=== PATIENT | female | born 1970 | race Caucasian/White ===

== ENCOUNTER 2019-12-15 17:09 | Emergency (ER) | payer BC ==
--- OUTSIDE RECORDS SUMMARY | 2019-12-15 17:11 | XMS REPORT | Summary of Care ---
:1970 Author Organization [facility] Physicians at [facility] Address [address] [place] [phone]- Encounter HQ Yudelka(FIN) [id number] Date(s): 11/15/19 - 11/15/19 [facility] Physicians at [place] [id number] [place] [address]- [phone] Discharge Disposition: Home or Self Care Attending Physician: Ken Knight MD Vital Signs Most recent to oldest [Reference Range]: 1 Temperature Oral [96.4-99.1 DegF] 97.3 DegF (11/15/19 8:50 AM) Blood Pressure [90-140/60-90 mmHg] 122/85 mmHg (11/15/19 8:50 AM) Respiratory Rate [14-20 BRMIN] 18 BRMIN (11/15/19 8:50 AM) Peripheral Pulse Rate [60-100 bpm] 77 bpm (11/15/19 8:50 AM) Weight 105.511 kg (11/15/19 8:50 AM) Problem List Condition Effective Dates Status Health Status Informant Depressive disorder1 Active Hypertensive disorder2 Active Morbid obesity(Confirmed) Active Panic disorder3 Active 1Data migrated from [employer] on 08/20/14.2Data migrated from [employer] on 08/20/14.3Data migrated from [employer] on 08/20/14. 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 DANISH [> OR = 60 mL/min/1.73m2] 103 m L/min/1.73m2 *N* (11/15/19 9:40 AM) eGFR [> OR = 60 mL/min/1.73m2] 119 mL /min/1.73m2 *N* (11/15/19 9:40 AM) A/G Ratio [1.0-2.5 (CALC)] 1.7 (CALC) *N* (11/15/19 9:40 AM) Albumin Lvl [3.6-5.1 g/dL] 4.3 g/dL *N* (11/15/19 9:40 AM) Alk Phos [37-153 unit/L] 68 unit/L *N* (11/15/19 9:40 AM) ALT [6-29 unit/L] 25 unit/L *N* (11/15/19 9:40 AM) AST [10-35 unit/L] 20 unit/L *N* (11/15/19 9:40 AM) B/C Ratio [6-22] NOT APPLICABLE (11/15/19 9:40 AM) BUN [7-25 mg/dL] 7 mg/dL *N* (11/15/19 9:40 AM) Calcium Lvl [8.6-10.4 mg/dL] 9.3 mg/dL *N* (11/15/19 9:40 AM) CHD Risk [<5.0 (CALC)] 3.5 (CALC) *N* (11/15/19 9:40 AM) Chol [<200 mg/dL] 153 mg/dL 2 *N* (11/15/19 9:40 AM) Chloride Lvl [98-110 mMol/L] 103 mMol/L *N* (11/15/19 9:40 AM) CO2 [20-32 mMol/L] 28 mMol/L *N* (11/15/19 9:40 AM) Creatinine Lvl [0.50-1.05 mg/dL] 0.65 mg/dL 3 *N* (11/15/19 9:40 AM) Globulin [1.9-3.7 g/dL] 2.6 g/dL *N* (11/15/19 9:40 AM) Glucose Lvl [65-99 mg/dL] 82 mg/dL 4 *N* (11/15/19 9:40 AM) HDL [> OR = 50 mg/dL] 44 mg/dL *LOW* (11/15/19 9:40 AM) Hgb A1C [<5.7 %] 5.5 % 5 *N* (11/15/19 9:40 AM) Potassium Lvl [3.5-5.3 mMol/L] 4.3 mMol/L *N* (11/15/19 9:40 AM) LDL (Calculated) 88 mg/dL 6 *N* (11/15/19 9:40 AM) Sodium Lvl [135-146 mMol/L] 139 mMol/L *N* (11/15/19 9:40 AM) Total Protein [6.1-8.1 g/dL] 6.9 g/dL *N* (11/15/19 9:40 AM) Bili Total [0.2-1.2 mg/dL] 0.3 mg/dL *N* (11/15/19 9:40 AM) Trig [<150 mg/dL] 111 mg/dL *N* (11/15/19 9:40 AM) 1Result Comment: For patients with diabetes plus 1 major ASCVD risk factor, treating to a non-HDL-C goal of <100 mg/dL (LDL-C of <70 mg/dL) is considered a therapeutic option.2Result Comment: [facility] performed by: [facility] [address] [place] [address] Roberto Muniz3Result Comment: For patients >49 years of age, the reference limit for Creatinine is approximately 13% higher for people identified as -Taiwanese.4Result Comment: Fasting reference interval Lab test performed by: [facility] [address] [place] [address] Roberto Muniz5Result Comment: For the purpose of screening for the presence of diabetes: <5.7% Consistent with the absence of diabetes 5.7-6.4% Consistent with increased risk for diabetes (prediabetes) > or =6.5% Consistent with diabetes This assay result is consistent with a decreased risk of diabetes. Currently, no consensus exists regarding use of hemoglobin A1c for diagnosis of diabetes in children. According to [place] Diabetes Association (ADA) guidelines, hemoglobin A1c <7.0% represents optimal control in non- diabetic patients. Different metrics may apply to specific patient populations. Standards of Medical Care in Diabetes(ADA). FASTING:YES FASTING: YES Lab test performed by: [facility] [address] [place] [address] Roberto Muniz6Result Comment: Reference range: <100 Desirable range <100 mg/dL for primary prevention; <70 mg/dL for patients with CHD or diabetic patients with > or = 2 CHD risk factors. LDL-C is now calculated using the Leonides-Althea calculation, which is a validated novel method providing better accuracy than the Friedewald equation in the estimation of LDL-C. Leonides BENITEZ et al. MELISSA. 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 Recreational Guerrero g Route: Oral. Smoking Status Former smoker; Ready to dean ge: No; Concerns about tobacco use in household: No; Exposure to Tobacco Smoke None; Cigarette Smoking Last 365 Days No; Reg Smoking Cessation Counseling No entered on: 11/15/19 Assessment and Plan No data available for this section
--- OUTSIDE RECORDS SUMMARY | 2019-12-15 17:11 | XMS REPORT | Summary of Care ---
:1970 Author Organization [facility] Physicians at [facility] Address [id number] [place] [address]- Encounter HQ Angie_kira(FIN) [id number] Date(s): 12/07/19 - 12/08/19 [facility] Physicians at [place] [address] [place] [address]- [phone] Vital Signs No data available for this section Problem List Condition Effective Dates Status Health Status Informant Depressive disorder1 Active Hypertensive disorder2 Active Morbid obesity(Confirmed) Active Panic disorder3 Active 1Data migrated from [employer] on 08/20/14.2Data migrated from [employer] on 08/20/14.3Data migrated from [employer] on 08/20/14. 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 Start Date: 12/07/19 Stop Date: 12/19/19 Status: Ordered Results No data available for this section Immunizations No data available for this section [...]
--- OUTSIDE RECORDS SUMMARY | 2019-12-15 17:11 | XMS REPORT | Continuity of Care Document ---
:1970 Author Organization [facility] Care Team Providers Name Role Phone RIWI Unavailable Un available Problems Problem Status Onset Classification Date Comments Sourc e Date Reported M13.0 - Active 09/23/19 [facility] POLYARTHRITIS, 19 Elma nn UNSPECIFIED Depressive Active Problem 12/11/2019 Data migrated M edical disorder from [facility], (disorder) Centricity on [facility] 08/20/14. [place] Hypertensive Active Problem 12/11/2019 Data migrated Medical disorder, from [facility], systemic Centricity on OP[facility] arterial 08/20/14. Dave (disorder) Morbid obesity Active Problem 12/11/2019 M edical (disorder) Group Panic disorder Active Problem 12/11/2019 Data migrated Medical (disorder) from [facility], Centricity on OP[facility] 08/20/14. [place] Medications Medication Details Route Status Patient Ordering Order Source Instructions Provider Date predniSONE 20 mg See Active oral tablet Special 020 Medical Instructio Group ns, PO, Daily, Days 1-4 - 2 tabs daily Days 5-8 - 1 tab daily Days 9-12 - half tab daily, X 12 day, # 14 tab, 0 Refill(s), Pharmacy: [id number], 170.18, cm, 03/08/19 14:01:00 LUMBER STRAIGHTENED, Height, 105.511, kg, 11/15/19 8:50:00 C... spironolactone 50 50 mg = 1 Active MH mg oral tablet tab, PO, 020 Medical Daily, # Group 90 tab, 1 Refill(s), [facility]: [id number], 170.18, cm, 03/08/19 14:01:00 LUMBER STRAIGHTENED, Height, 105.511, kg, 11/15/19 8:50:00 CDT, Weight citalopram 20 mg 30 mg = Active oral tablet 1.5 tab, 020 Medical PO, Daily, Group # 135 tab, 3 Refill(s), Pharmacy: [facility] #[id number], 170.18, cm, 03/08/19 14:01:00 LUMBER STRAIGHTENED, Height, 105.511, kg, 11/15/19 8:50:00 CDT, Weight citalopram 20 mg 20 mg = 1 Inactive oral tablet tab, PO, 020 Medical Daily, 0 Group Refill(s) citalopram 10 mg 10 mg = 1 Inactive oral tablet tab, PO, 020 Medical Daily, 0 Group Refill(s) gabapentin 300 MG 300 mg = 1 Active Oral Capsule cap, PO, 020 Medical TID, Day Group 1: 1 cap daily; Day 2: 1 cap BID, Day 3 and later: 1 cap TID, # 42 cap, 2 Refill(s), Pharmacy: [facility] #[id number] gabapentin 300 MG 300 mg = 1 Active Oral Capsule cap, PO, 019 Medical TID, Day Group 1: 1 cap daily; Day 2: 1 cap BID, Day 3 and later: 1 cap TID, # 42 cap, 0 Refill(s), Pharmacy: [facility] #[id number] Depo-Medrol 40 mg, Inactive Route: IM, 019 Medical Drug form: Group SUSP, ONCE, Dosing Weight 105.318, kg, Start date: 03/08/19 14:26:00 LUMBER STRAIGHTENED, Stop date: 03/08/19 14:26:00 LUMBER STRAIGHTENED Buprenorphine 4 See Active MG / Naloxone 1 Instructio 019 Medic al MG Oral Strip ns, 8 mg Group [Suboxone] in AM, 4 mg in PM, 0 Refill(s) Allergies, Adverse Reactions, Alerts Substance Category Reaction Severity Reaction Status Date Comments S ource type Reported No Known Assertion Drug MH Medication allergy Medic al Allergies Group Immunizations No Data Provided for This Section Results Order Name Results Value Reference Date Interpretation Comments Susan rce Range CHEM PANEL Glucose Lvl 82 65 - 99 11/14 Result Comment: Medical
Group Fasting reference interval

Lab test performed by:
[facility]
[address]
[place] [address]
Roberto Houston Muniz CHEM PANEL BUN 7 7 - 25 08/ MH /2019 Medical Group CHEM PANEL Creatinine 0.65 0.50 - 08 Result MH Lvl 1.05 Comment: For Medical patients >49 Group years of age, the reference limit
for Creatinine is approximately 13% higher for people
id entified as -Ameri can. CHEM PANEL eGFR NON-AFR. 103 > OR = 60 08/24 BANGLADESHI mL/min/1.7 /2020 Medical 3m2 Group CHEM PANEL eGFR 119 > OR = 60 08/24 BANGLADESHI mL/min/1.7 /2020 Medical 3m2 Group CHEM PANEL B/C Ratio NOT 6 - 22 08 APPLICABLE /2019 Medical Group CHEM PANEL Sodium Lvl 139 135 - 146 08/ MH /2019 Medical Group CHEM PANEL Potassium Lvl 4.3 3.5 - 5.3 08 MH /2019 Medical Group CHEM PANEL Chloride Lvl 103 98 - 110 08/ MH /2019 Medical Group CHEM PANEL CO2 28 20 - 32 08/ MH /2019 Medical Group CHEM PANEL Calcium Lvl 9.3 8.6 - 10.4 08 MH /2019 Medical Group CHEM PANEL Total Protein 6.9 6.1 - 8.1 08/ MH /2019 Medical Group CHEM PANEL Albumin Lvl 4.3 3.6 - 5.1 08 MH Medical Group CHEM PANEL Globulin 2.6 1.9 - 3.7 08/ MH Medical Group CHEM PANEL A/G Ratio 1.7 1.0 - 2.5 08/ MH Medical Group CHEM PANEL Bili Total 0.3 0.2 - 1.2 08 MH Medical Group CHEM PANEL Alk Phos 68 37 - 153 08/ MH /2020 Medical Group CHEM PANEL ASPARTATE 20 10 - 35 08/ TRANSAMINASE /2019 Medical Group CHEM PANEL ALANINE 25 6 - 29 08/ AMINOTRANSFER /2019 Medical ASE Group LIPIDS Chol 153 <200 mg/dL 11/14 Result Comment: Medical
Lab Group test performed by:
[facility]
[address]
[place] [address]
Roberto Muniz LIPIDS HDL 44 > OR = 50 11/14 mg/dL Medical Group LIPIDS Trig 111 <150 mg/dL 11/14 [facility] Group LIPIDS LDL 88 11/14 Result (Calculated) Comment: Medical Reference Group range: <100

Desirabl e range <100 mg/dL for primary prevention;
<70 mg/dL for patients with CHD or diabetic patients
with > or = 2 CHD risk factors.

LDL-C is now calculated using the Berta s
calculat ion, which is a validated novel method providing
better accuracy than the Friedewald equation in the
estimati on of LDL-C.
Leonides BENITEZ et al. MELISSA. 2013;310(19): 5242-5476
(http:// education.[employer] .[employer]/faq/FAQ1 64) LIPIDS CHD Risk 3.5 <5.0 11/14 (CALC) Medical Group LIPIDS Non HDL Chol 109 <130 mg/dL 11/14 Result Comment: For Medical patients with Group diabetes plus 1 major ASCVD risk
factor, treating to a non-HDL-C goal of <100 mg/dL
(LDL-C of <70 mg/dL) is considered a therapeutic
option. SPECIAL Hgb A1C 5.5 <5.7 % 11/14 Result CHEMISTRY Comment: For Medical the purpose Group of screening for the presence of
diabet es:

<5.7% Consistent with the absence of diabetes
5.7-6.4% Consistent with increased risk for diabetes
(prediabetes)
> or =6.5% Consistent with diabetes

This assay result is consistent with a decreased risk
of diabetes.<br/ >
Currentl y, no consensus exists regarding use of
hemogl obin A1c for diagnosis of diabetes in children.<br/ >
Accordin g to [place] Diabetes Association (ADA)
ricarda delines, hemoglobin A1c <7.0% represents optimal
c ontrol in non- diabetic patients. Different<br/ >metrics may apply to specific patient populations.
Standard s of Medical Care in Diabetes(ADA) .

FASTING: YES
<b r/>FASTING: YES

Lab test performed by:
[facility]
[address] [facility] [address]
[place] [address]
Roberto Muniz Pathology Reports No Data Provided for This Section Diagnostic Reports Report Value Date Source Hand 3 views Bilateral EXAM: XR BILATERAL HAND 4 VIEWS 9 [facility] [place] DX DATE: 09/22/2018 9:59 CDT INDICATION: - M13.0 Polyarthritis, unspecifie d COMPARISON: None available. TECHNIQUE: PA, [place] Scottal and oblique radiographs of the bilateral hands. FINDINGS: No acute fracture or malalignment is identified. Joint spaces and bone mineral density are preserved. No erosions, periostitis or ankylosis is present . No soft tissue abnormality is identified. IMPRESSION: 1. No acute abnormality. 2. No radiographic evidence of inflammatory arth ropathy. Knee 4+ views bilat DX EXAM: XR BILATERAL KNEE 4 VIEWS 9 [facility] [place] DATE: 09/22/2018 9:59 CDT INDICATION: - M13.0 Polyarthritis, unspecifie d COMPARISON: None available. TECHNIQUE: 4 views of the knee FINDINGS: No acute fracture or malalignment is i dentified. Suggestion of prior left ant erior cruciate ligament reconstruction. The hardware is intact without evidence of loosening. Minimal osteophytes are pres ent along the left medial compartment. A small joint body measuring approximately 0.7 cm seen along the anterior joint line on the left. Joint spaces are preserved bilaterally. There is no excessive joint fluid. No soft tissu e abnormality is identified. IMPRESSION: 1. No acute bony abnormality. 2. Prior left anterior cruc iate ligament reconstruction without hardware complications. 3. Mild degenerative change s of the left knee with minimal osteophytes along the medial compartment. Consultation Notes No Data Provided for This Section Discharge Summaries No Data Provided for This Section History and Physicals No Data Provided for This Section Vital Signs Vital Sign Value Date Comments Source Systolic (mm Hg) 122 11/15/2019 Medical Group Diastolic (mm Hg) 85 11/15/2019 Medical Group Heart Rate 77 11/15/2019 Medical Grou p Respitory Rate 18 11/15/2019 Medical Gr oup Temperature Oral (F) 97.3 F 11/15/2019 Medi mayra Group Weight 105.511 11/15/2019 Medical Grou p Systolic (mm Hg) 119 03/08/2019 Medical Group Diastolic (mm Hg) 78 03/08/2019 Medical Group Heart Rate 93 03/08/2019 Medical Grou p Temperature Oral (F) 98.4 F 03/08/2019 Medi mayra Group Height 170.18 cm 03/08/2019 Medical Grou p Weight 105.318 03/08/2019 Medical Grou p BMI Calculated 36.37 03/08/2019 Medical Gr oup Encounters Location Location Encounter Encounter Reason Attending ADM AL Stat us Source Details Type Number For Provider Date Date Visit [facility] Outpt Diag [id number] Kwame Stephenson 09/22 09/23 [facility] Outpatient Services /2018 [facility] [place] Outpatient [id number] Ken 03/08 Active [facility] [id number] Ken 03/08 03/09 Primary Knight /2018 Medical Care Group [facility] Outside [id number] 03/11 03/13 Primary Medical /2018 Medical Care Records Group [facility] Phone [id number] 04/02 04/04 Primary Message /2019 Medical Care Group [place] Outpatient [id number] Ken 11/14 Active [facility] Family Outpatient [id number] Ken 11/14 11/15 Medicine Knight /2019 [facility] Family Between [id number] 11/15 11/16 Medicine Visit /2019 [facility] Family Phone [id number] 12/06 12/08 Medicine Message /2019 [facility] Outpatient [id number] Ken 01/20 Active [facility] [place] Procedures Procedure Code Date Perfomer Comments Source Stool DNA-based [id number] Cologuard MARCO ANTONIO Syed edical colorectal 0 negative, Group cancer continue screening<sup>1< routine /sup> screening Assessment and Plan No Data Provided for This Section Plan of Care No Data Provided for This Section Social History Social History Date Source Social History TypeResponse 03/08/2019 MARCO ANTONIO Medical G roup Alcohol Past Substance Abuse Use: Past. Recreational Drug Route: Oral. Smoking Status Former smoker; Ready to change: No; Conc erns about tobacco use in household: No; Exposure to Tobacco Smoke None; Cigarette Smoking Last 365 Days No; Reg Smoking Cessation Counseling No entered on: 11/15/19 No data available for this 09/23/2018 MARCO ANTONIO Wills nn section Family History No Data Provided for This Section Advance Directives No Data Provided for This Section Functional Status No Data Provided for This Section
--- OUTSIDE RECORDS SUMMARY | 2019-12-15 17:11 | XMS REPORT | Summary of Care ---
:1970 Author Organization [facility] Physicians at [facility] Address [address] [place] [address]- Encounter HQ Encntr_alias(FIN) [id number] Date(s): 11/16/19 - 11/17/19 [facility] Physicians at [place] [address] [place] [phone]- [phone] Vital Signs No data available for this section Problem List Condition Effective Dates Status Health Status Informant Depressive disorder1 Active Hypertensive disorder2 Active Morbid obesity(Confirmed) Active Panic disorder3 Active 1Data migrated from [employer] on 08/20/14.2Data migrated from [employer] on 08/20/14.3Data migrated from [employer] on 08/20/14. 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 Recreational Guerrero g Route: Oral. Smoking Status Former smoker; Ready to daen ge: No; Concerns about tobacco use in household: No; Exposure to Tobacco Smoke None; Cigarette Smoking Last 365 Days No; Reg Smoking Cessation Counseling No entered on: 11/15/19 Assessment and Plan No data available for this section
--- OUTSIDE RECORDS SUMMARY | 2019-12-15 17:11 | XMS REPORT | Summary of Care ---
:1970 Author Name NADINE HINOJOSA M.D. Address Unavailable Unavailable , Care Team Providers Name Role Phone NADINE HINOJOSA M.D. Unavailable Unavailable MARQUEZ Macedo, YOHAN Unavailable Unavailable LINA MUHAMMAD MD Unavailable Unavailable ASHISH HAND [place], NADINE Unavailable Unavailable Eugenio Webb MD Unavailable Unavailable YOHAN ZAYAS MD Unavailable Unavailable LINA MUHAMMAD MD Unavailable Unavailable Unavailable Unavailable Unavailable Functional Status Name Dates Details Functional status health issues are not documented Status: Name Dates Details Cognitive status health issues are not documented Status: Problems Name Dates Details Opioid withdrawal (292.0, F11.23) Status : Active Arthritis of both knees (716.96, M17.0) Status: Active Methamphetamine use disorder, moderate, 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 Quantity: 30 Refills: 2 YOHAN ZAYAS M.D. Start : 16-Jun-2018 Active Buprenorphine HCl-Naloxone HCl - 8-[address] Suboxone one and one-half films SL a day for opioid use disorder Quantity: 32 Refills: 0 NADINE HINOJOSA M.D. Start : 26-Aug-2018 Active Vitamin D3 125 MCG (5000 UT) Oral Capsule TAKE 1 CAPSULE DAILY Refills: 0 Active Spironolactone 50 MG Oral Tablet Refills: 0 Active Citalopram Hydrobromide 10 MG Oral Tablet TAKE 1 TABLET BY MOUTH EVERY DAY Quantity: 90 Refills: 1 NADINE HINOJOSA M.D. Start : 01-Jul-2019 Active Allergies and Adverse Reactions Name Dates Details lamotrigine (Allergy) Status: Active Past Medical History Name Dates Details History of hypertension (V12.59, Z86.79) Status: Resolved Procedures Procedure Dates Details [Q] DRUG SCREEN,COMPREHENSIVE (URINE) Date: 05-Oct-2019 History of No history of surgery Complet ed Immunization Name Dates Details Immunizations not documented Social History Name Dates Details - Status: Name Dates Details Ex-smoker (finding) Vital Signs Date Test Result Details No Known Vitals to report Results Date Description Value Details Results not documented Plan of Care Name Dates Details Planned Observations Planned Goals not documented Planned Encounters Appointment; NADINE HINOJOSA M.D. On: 25-Oct-2019 10:3 0 Interventions Provided Medication ChangesBuprenorphine HCl-Naloxone HCl - 8-2 MG Sublingual Film - [facility]/Procedures/Imaging[Q] DRUG SCREEN,COMPREHENSIVE (URINE); To Be Done: 05 Oct 2019Tobacco Use Screening; Done: 06 Oct 2019PlanContinue Suboxone (buprenorphine/naloxone) 8/2 mg 1 film in a.m. and film at 7 p.m. (1.5 films/day for TDD of 12/3 mg) for maintenance pharmacotherapy. This is dispensed by her . Today I sent pablo prescription for Suboxone #32 films to last 21 days until her next visit with me in 3 weeks on 10/26/19. She stated today that she plans to come in person.For opioid-induced constipation, she drinks Slim Fast shakes nearly daily. Vegetables and salads in her diet help prevent constipation. She can also take docusate OTC if necessary.She will continue seeing her individual therapist, Jennifer Levy in [place], every 2 weeks for now for relapse prevention via telemedicine due to social distancing restrictions because of COVID-19.She plans to find a new therapist close to her home only after she is no longer able to work with Ms. Levy via telemedicine. She has not previously been to a Narcotics Anonymous meeting. Today I encouraged her again to accessonline NA meetings. She plans to attend at least one NA meeting by her next visit with me.Continue citalopram 10 mg daily for major depression and monitor her mood.For insomnia, she takes trazodone 1 whole tablet [id number].She smoked up to 2 ppd, but quit nearly 1 year ago with nicotine gum. She stopped using nicotine gumover 3 weeks ago.I ordered a [facility] UDS today. The pt is to give a urine sample within 48 hours.Discussion/Summaryfollow-up 3 weeks Discussed the following with patient/family/other who verbally acknowledged and agrees to comply Safety issues Diagnosis. Co-Morbidities. Bio-psychosocial factors. Maintaining symptoms. Treatment plan. Current medication(s). Target symptoms. Side effects. Risks/benefits. Impression: Opioid use disorder on agonist maintenanceTobacco use disorder in early remissionMethamphetamine use disorder in sustained remissionMajor depressive disorderAnxietyInsomniaOpioid- induced constipationVisit Duration: Instructions Name Dates Details Instructions not documented Encounters Appointment; YOHAN ZAYAS M.D. On: 25-May-2018 14:30 Encounter Diagnosis: Problem not documented Appointment; YOHAN ZAYAS M.D. On: 01-Jun-2018 8:00 Encounter Diagnosis: Problem not documented Appointment; YOHAN ZAYAS M.D. On: 02-Jun-2018 8:00 Encounter Diagnosis: Problem not documented Appointment; YOHAN ZAYAS M.D. On: 09-Jun-2018 10:00 Encounter Diagnosis: Problem not documented Appointment; YOHAN ZAYAS M.D. On: 16-Jun-2018 14:30 Encounter Diagnosis: Problem not documented Appointment; YOHAN ZAYAS M.D. On: 23-Jun-2018 10:00 Encounter Diagnosis: Problem not documented Appointment; YOHAN ZAYAS M.D. On: 07-Jul-2018 8:00 Encounter Diagnosis: Problem not documented Appointment; YOHAN ZAYAS M.D. On: 21-Jul-2018 14:30 Encounter Diagnosis: Problem not documented Appointment; YOHAN ZAYAS M.D. On: 13-Aug-2018 15:00 Encounter Diagnosis: Problem not documented Appointment; YOHAN ZAYAS M.D. On: 26-Aug-2018 8:00 Encounter Diagnosis: Problem not documented Appointment; YOHAN ZAYAS M.D. On: 14-Sep-2018 9:30 Encounter Diagnosis: Problem not documented Appointment; FORTINO RIVERO M.D. On: 22-Sep-2018 8:00 Encounter Diagnosis: Problem not documented Appointment; YOHAN ZAYAS M.D. On: 30-Sep-2018 9:30 Encounter Diagnosis: Problem not documented Appointment; YOHAN ZAYAS M.D. On: 14-Oct-2018 9:30 Encounter Diagnosis: Problem not documented Appointment; YOHAN ZAYAS M.D. On: 28-Oct-2018 9:30 Encounter Diagnosis: Problem not documented Appointment; YOHAN ZAYAS M.D. On: 25-Nov-2018 9:30 Encounter Diagnosis: Problem not documented Appointment; YOHAN ZAYAS M.D. On: 23-Dec-2018 9:30 Encounter Diagnosis: Problem not documented Appointment; YOHAN ZAYAS M.D. On: 20-Jan-2019 13:00 Encounter Diagnosis: Problem not documented Appointment; YOHAN ZAYAS M.D. On: 16-Feb-2019 11:00 Encounter Diagnosis: Problem not documented Appointment; YOHAN ZAYAS M.D. On: 09-Mar-2019 11:30 Encounter Diagnosis: Problem not documented Appointment; FORTINO RIVERO M.D. On: 29-Mar-2019 14:00 Encounter Diagnosis: Problem not documented Appointment; YOHAN ZAYAS M.D. On: 06-Apr-2019 11:00 Encounter Diagnosis: Problem not documented Appointment; YOHAN ZAYAS M.D. On: 04-May-2019 10:30 Encounter Diagnosis: Problem not documented Appointment; NADINE HINOJOSA M.D. On: 17-May-2019 14: 00 Encounter Diagnosis: Problem not documented Appointment; NADINE HINOJOSA M.D. On: 07-Jun-2019 11: 30 Encounter Diagnosis: Problem not documented Appointment; NADINE HINOJOSA M.D. On: 22-Jun-2019 16: 30 Encounter Diagnosis: Problem not documented Appointment; NADINE HINOJOSA M.D. On: 06-Jul-2019 15: 30 Encounter Diagnosis: Problem not documented Appointment; NADINE HINOJOSA M.D. On: 20-Jul-2019 15: 00 Encounter Diagnosis: Problem not documented Appointment; NADINE HINOJOSA M.D. On: 10-Aug-2019 14: 00 Encounter Diagnosis: Problem not documented Appointment; NADINE HINOJOSA M.D. On: 24-Aug-2019 14:0 0 Encounter Diagnosis: Problem not documented Appointment; NADINE HINOJOSA M.D. On: 13-Sep-2019 11: 30 Encounter Diagnosis: Problem not documented Appointment; NADINE HINOJOSA M.D. On: 05-Oct-2019 13: 30 Encounter Diagnosis: Problem not documented
--- OUTSIDE RECORDS SUMMARY | 2019-12-15 17:11 | XMS REPORT | Summary of Care ---
:1970 Author Name NADINE HINOJOSA M.D. Address Unavailable Unavailable , Care Team Providers Name Role Phone NADINE HINOJOSA M.D. Unavailable Unavailable MARQUEZ Macedo, YOHAN Unavailable Unavailable LINA MUHAMMAD MD Unavailable Unavailable ASHISH HAND [place], NADINE Unavailable Unavailable Eugenio Webb MD Unavailable Unavailable YOHAN ZAYAS MD Unavailable Unavailable LINA MUHAMMAD MD Unavailable Unavailable Unavailable Unavailable Unavailable Functional Status Name Dates Details Functional status health issues are not documented Status: Name Dates Details Cognitive status health issues are not documented Status: Problems Name Dates Details Tobacco use disorder, moderate, in early remission (305.1, F 17.201) Status: Active Opioid use disorder, severe, on maintenance therapy (305.50, F11.20) Status: Active Methamphetamine use disorder, moderate, 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.73, F15.21) Status: Active Constipation due to opioid therapy (564.09, K59.03) Status: Active Major depressive disorder, recurrent, unspecified (296.30, F 33.9) Status: Active Anxiety disorder, unspecified (300.00, F41.9) Status: Active Insomnia (780.52, G47.00) Status: Active Opioid withdrawal (292.0, F11.23) Status : Active Arthritis of both knees (716.96, M17.0) Status: Active Medications Name Dates Details traZODone [...] Z86.79) Status: Resolved Procedures Procedure Dates Details History of No history of surgery Complet ed Immunization Name Dates Details Immunizations not documented Social History Name Dates Details - Status: Name Dates Details Ex-smoker (finding) Vital Signs Date Test Result Details No Known Vitals to report Results Date Description Value Details [id number] [Q] DRUG SCREEN,COMPREHENSIVE Comments: CaffeineNicotine and/or cotinine (URINE) PLEASE NOTE: See Below Comments: * Thes e results are for medical treatment only. * * Analysis was performed as non-forensic testing. * URINE RESULTS DRUG(S) DETECTED: (Abnormal) (Normal) Comments: Acetam inophen (Abnormal) Comments: Caffei neNicotine and/or cotinine Comments: PATIEN T RESULTS ARE INDICATED ABOVE. URINE WAS TESTED FOR THE FOLLOWING: ANALGESICS BARBITURATES PHENCYCLIDINEANTIARRYTHMICS BENZODIAZEPINE METABS. SEDATIVES/HYPNOTIC SANTICONVULSANTS CANNABINOIDS STIMULANTSANTIDEPRESSANTS COCAINE METABOLITE VOLATILESANTIHISTAMINES OPIATES/NARCOTICSANTIPSYCHOTICS MUSCLE RELAXANTS PLEASE REF ER TO CURRENT DI RECTORY OF SERVICES FOR SPECIFICS ONWHICH DRUGS ARE TESTED. Plan of Care Name Dates Details Planned Observations Planned Goals not documented Planned Encounters Appointment; NADINE HINOJOSA M.D. On: 25-Oct-2019 10:3 0 Interventions Provided Medication ChangesBuprenorphine HCl-Naloxone HCl - 8-2 MG Sublingual Film - [facility]/Procedures/Imaging[Q] DRUG SCREEN,COMPREHENSIVE (URINE); Done: 06 Oct 2019Tobacco Use Screening; Done: 06 Oct 2019 Instructions Name Dates Details Instructions not documented [...]
--- OUTSIDE RECORDS SUMMARY | 2019-12-15 17:11 | XMS REPORT | Continuity of Care Document ---
:1970 Author Organization [facility] t Address [address] [place] [address] Care Team Providers Name Role Phone Serene Knight Attending Clinician ASHISH Attending Clinician Unavailable MARQUEZ Attending Clinician Unavailable MAT Attending Clinician Unavailable Graham HAND L Attending Clinician Kiana Stephenson Attending Clinician Problems Condition Condition Condition Status Onset Resolution Last Treating Co mments Source Name Details Category Date Date Treatment Clinician Date M13.0 - Diagnosis Active 2018-09-22 Me moria POLYARTHRI 7-02 10:00:00 l TIS, M13.0 - 00:01: [place] UNSPECIFIE POLYARTHRI 00 D TIS, UNSPECIFIE D Active 09/22/2018 MARCO ANTONIO CARLTOND Dave History of History of Problem Resolve Univers hypertensi hypertensi d it y of on on [place] [facility] Opioid Opioid Problem Active Univers withdrawal withdrawal it y of [place] [facility] Arthritis Arthritis Problem Active Uni vers of both of both ity of knees knees [place] [facility] 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 it[place] of disorder, disorder, [place] moderate, moderate, Phys ici in in ans sustained sustained remission remission Opioid use Opioid use Problem Active U nivers disorder, disorder, ity of severe, [place] maint[place]anc maintenanc Ph ysici e therapy e therapy ans Tobacco Tobacco Problem Active Univers use use it[place] of disorder, disorder, [place] moderate, moderate, Phys ici in early in early ans remission remission Major Major Problem Active Univers depressive depressive it y of disorder, [place], [place] recurrent, recurrent, Ph ysici unspecifie unspecifie an s d d Anxiety Anxiety Problem Active Univers disorder, disorder, ity of [place]spec[place] d [place] Physici ans Insomnia Insomnia Problem Active Unive rs it[place] of [place] Physici ans Constipati Constipati Problem Active U nivers on due to on due to ity of opioid opioid [place] therapy therapy Physici ans Depressive Problem Active 2019-12-11 M emoria disorder 00:46:59 l (disorder) Bryce n Depressive disorder (disorder) Active Problem 12/11/2019 Data migrated from [place] on 08/20/14. [facility] Group, OPID [place] Hypertensi Problem Active 2019-12-11 M emoria ve 00:46:59 l disorder, Dave systemic Hypertensi arterial ve (disorder) disorder, systemic arterial (disorder) Active Problem 12/11/2019 Data migrated from [place] on 08/20/14. [facility] Group, OPIDonna [place] Morbid Problem Active 2019-12-11 Memor ia obesity 00:46:59 l (disorder) Morbid Herm diana obesity (disorder) Active Problem 12/11/2019 Medical Group Panic Problem Active 2019-12-11 Memor ia disorder 00:46:59 l (disorder) Panic Elma nn disorder (disorder) Active Problem 12/11/2019 Data migrated from [place] on 08/20/14. [facility], WILBERTO [place]osta Allergies, Adverse Reactions, Alerts Allergy Allergy Status Severity Reaction(s) Onset Inactive Treating Comm ents Source Name Type Date Date Clinician lamotrig Allergy Active Univers ine to drug ity of ([facility] ) Physici ans No Known No Known Active Memori a Medicati Medicati l on on Dave Allergie Allergie s s Social History Social Habit Start Date Stop Date Quantity Comments Source Social History 2018-09-23 2018-09-[address] [facility] panfilo 04:59:00 04:59:00 Smoking Status Start Date Stop Date Source Ex-smoker (finding) [facility] Physicians Medications Ordered Filled Start Stop Current Ordering Indication Dosage Frequency Signature Comments Components Source Medication Medication Date Date Medication? Clinician (SIG) Name Name predniSONE Yes See Memoria 20 mg oral 9-15 Special l tablet 22:30: Giorgiio Elma nn 00 ns, PO, Daily, Days 1-4 - 2 tabs daily Days 5-8 - 1 tab daily Days 9-12 - half tab daily, X 12 day, # 14 tab, 0 Refill(s), Pharmacy: [facility] #[id number], 170.18, cm, 03/08/19 14:01:00 VEGETABLE PACKER, Height, 105.511, kg, 11/15/19 8:50:00 C... spironolact 2020-0 Yes 50 mg = 1 M emoria one 50 mg 8-24 tab, PO, l oral tablet 14:40: Daily, # He rmann 00 90 tab, 1 Refill(s), Pharmacy: [facility] #[id number], 170.18, cm, 03/08/19 14:01:00 VEGETABLE PACKER, Height, 105.511, kg, 11/15/19 8:50:00 CDT, Weight citalopram 2019-0 Yes 30 mg = Jaime yen 20 mg oral 8-24 1.5 tab, l tablet 14:39: PO, Daily, Elma nn 00 # 135 tab, 3 Refill(s), Pharmacy: [facility] #[id number], 170.18, cm, 03/08/19 14:01:00 VEGETABLE PACKER, Height, 105.511, kg, 11/15/19 8:50:00 CDT, Weight citalopram 2019-0 No 20 mg = 1 Me moria 20 mg oral 8-24 tab, PO, l tablet 13:57: Daily, 0 Dave 00 Refill(s) citalopram 2019-0 No 10 mg = 1 Me moria 10 mg oral 8-24 tab, PO, l tablet 13:57: Daily, 0 Dave 00 Refill(s) Citalopram Citalopram 2020-0 Yes NADINE TAKE 1 Univers Hydrobromid Hydrobromid 4-09 HINOJOSA TABLET BY ity of e 10 MG e 10 MG 00:00: M.D. MOUTH [place] Oral Tablet Oral Tablet 00 EVERY DAY Physici ans gabapentin 2020-0 Yes 300 mg = 1 M emoria 300 MG Oral 1-10 cap, PO, l Capsule 14:58: TID, Day Bryce n 00 1: 1 cap daily; Day 2: 1 cap BID, Day 3 and later: 1 cap TID, # 42 cap, 2 Refill(s), Pharmacy: [facility] #[id number] gabapentin 2018-03 Yes 300 mg = 1 M emoria 300 MG Oral 2-16 cap, PO, l Capsule 20:34: TID, Day Bryce n 00 1: 1 cap daily; Day 2: 1 cap BID, Day 3 and later: 1 cap TID, # 42 cap, 0 Refill(s), Pharmacy: [facility] #[id number] Depo-Medrol 2018-03 No 40 mg, Jaime yen 2-16 Route: IM, l 20:26: Drug form: Dave 00 SUSP, ONCE, Dosing Weight 105.318, kg, Start date: 03/08/19 14:26:00 VEGETABLE PACKER, Stop date: 03/08/19 14:26:00 VEGETABLE PACKER Buprenorphi 2018-03 Yes See Nic martinez ne 4 MG / 2-16 Instructio l Naloxone 1 19:56: ns, 8 mg Her song MG Oral 00 in AM, 4 Strip mg in PM, [Suboxone] 0 Refill(s) Buprenorphi Buprenorphi Yes [facility] ne 6-05 HINOJOSA Suboxone ity of HCl-Naloxon HCl-Naloxon 00:00: M.D. one and [place] e HCl - 8-2 e HCl - 8-2 00 one-half Physici MG MG films SL a ans Sublingual Sublingual day for Film Film opioid use disorder traZODone traZODone Yes YOHAN ZAYAS 1 TAKE 1 Univers HCl - 50 MG HCl - 50 MG 3-26 M.D. TABLET AT ity of Oral Tablet Oral Tablet 00:00: BEDTIME. [place] 00 Physici ans Vitamin D3 Vitamin D3 Yes 1 QD TAKE 1 U nivers 125 MCG 125 MCG CAPSULE ity of (5000 UT) (5000 UT) DAILY [place] Oral Oral Physici Capsule Capsule ans Spironolact Spironolact Yes U nivers one 50 MG one 50 MG ity o f Oral Tablet Oral Tablet [place] Physici ans Vital Signs Vital Name Observation Time Observation Value Comments Source Systolic (mm Hg) 2019-11-15 [facility] rmann 13:50:00 Diastolic (mm Hg) 2019-11-[address] [facility] ermann 13:50:00 Heart Rate 2019-11-15 [facility] Bryce n 13:50:00 Respitory Rate 2019-11-15 Paola ortiz 13:50:00 Temperature Oral 2019-11-15 97.3 F Paola cohen (F) 13:50:00 Weight 2019-11-15 Paola Wu n 13:50:00 Systolic blood 2019-06-07 130 mm[Hg] Location: [facility]; [place] [facility] 11:16:00 Position: [place] [facility] Sitting Diastolic blood 2019-06-07 80 mm[Hg] Location: [facility]; [place] [facility] 11:16:00 Position: [place] [facility] Sitting Body height 2019-06-07 67 [in_us] University of 11:16:00 [place] [facility] s Weight 2019-06-07 231.375 [lb_av] University o f 11:16:00 [place] [facility] Body mass index 2019-06-07 36.24 kg/m2 University o f (BMI) [Ratio] 11:16:00 [place] [facility] Heart Rate 2019-06-07 105 /min Location: [facility] 11:16:00 Brachial [place] [facility] Artery; Systolic blood 2019-05-17 122 mm[Hg] Position: [facility] 14:01:00 Sitting [place] [facility] Diastolic blood 2019-05-17 82 mm[Hg] Position: [place] o f pressure 14:01:00 Sitting [place] [facility] Weight 2019-05-17 227.5 [lb_av] University of 14:01:00 [place] [facility] Body mass index 2019-05-17 35.63 kg/m2 University o f (BMI) [Ratio] 14:01:00 [place] [facility] Body height 2019-05-17 67 [in_us] [facility] 14:01:00 [place] [facility] Heart Rate 2019-05-17 82 /min University 14:01:00 [place] [facility] BP Systolic 2019-04-06 106 mm[Hg] Location: [facility]; [facility] 10:08:00 Position: [place] [facility] Sitting BP Diastolic 2019-04-06 71 mm[Hg] Location: [facility]; [facility] 10:08:00 Position: [place] [facility] Sitting Height 2019-04-06 67 [in_us] University of 10:08:00 [place] [facility] Weight 2019-04-06 231 [lb_av] University 10:08:00 [place] [facility] Body Mass Index 2019-04-06 36.18 kg/m2 University o f Calculated 10:08:00 [place] [facility] Heart Rate 2019-04-06 88 /min Quality: Normal University o f 10:08:00 [place] [facility] Systolic (mm Hg) 2019-03-08 Paola Dumas rmann 20:01:00 Diastolic (mm Hg) 2019-03-08 Paola Knapp ermann 20:01:00 Heart Rate 2019-03-08 Paola Wu n 20:01:00 Temperature Oral 2019-03-08 98.4 F Paola Dumas rmann (F) 20:01:00 Height 2019-03-08 170.18 cm Paola Wu n 20:01:00 Weight 2019-03-08 Paola Wu n 20:01:00 BMI Calculated 2019-03-08 Paola Mullins diana 20:01:00 BP Systolic 2018-09-22 124 mm[Hg] Location: [facility]; [facility] 09:14:00 Position: [place] [facility] Sitting BP Diastolic 2018-09-22 86 mm[Hg] Location: [facility] 09:14:00 Position: [place] [facility] Sitting Height 2018-09-22 61 [in_us] [facility] 09:14:00 [place] [facility] Weight 2018-09-22 231.25 [lb_av] [facility] 09:14:00 [place] [facility] Body Mass Index 2018-09-22 43.69 kg/m2 [place] [facility] Calculated 09:14:00 [place] [facility] Heart Rate 2018-09-22 89 /min Location: [facility] 09:14:00 Radial; [place] [facility] BP Systolic 2018-09-14 114 mm[Hg] [facility] 09:23:00 [place] [facility] BP Diastolic 2018-09-14 82 mm[Hg] [facility] 09:23:00 [place] [facility] Weight 2018-09-14 227.8 [lb_av] [facility] 09:23:00 [place] [facility] Body Mass Index 2018-09-14 43.04 kg/m2 [place] Calculated 09:23:00 [place] [facility] Heart Rate 2018-09-14 91 /min [facility] 09:23:00 [place] [facility] Procedures Procedure Date / Time Performing Clinician Source Performed [Q] DRUG 2019-10-05 00:00:00 [place] [facility] SCREEN,COMPREHENSIVE Physicians (URINE) [Q] DRUG 2019-07-20 00:00:00 [place] [facility] SCREEN,COMPREHENSIVE Physicians (URINE) [QH] DRUG 2019-06-22 00:00:00 [facility] SCREEN,COMPREHENSIVE Physicians (URINE) [QH] DRUG 2019-05-17 00:00:00 [facility] SCREEN,COMPREHENSIVE Physicians (URINE) [QH] DRUG 2019-05-04 00:00:00 [facility] SCREEN,COMPREHENSIVE Physicians (URINE) [Q] DRUG 2019-05-04 00:00:00 [facility] SCREEN,COMPREHENSIVE Physicians (URINE) [QH] DRUG 2019-04-06 00:00:00 [facility] SCREEN,COMPREHENSIVE Physicians (URINE) Stool DNA-based 2019-04-05 06:00:00 [facility] colorectal cancer screening<sup>1</sup> [QH] DRUG 2019-03-09 00:00:00 [facility] SCREEN,COMPREHENSIVE Physicians (URINE) [QH] DRUG 2019-02-16 00:00:00 [facility] SCREEN,COMPREHENSIVE Physicians (URINE) [QH] DRUG 2019-01-20 00:00:00 [facility] SCREEN,COMPREHENSIVE Physicians (URINE) [QH] DRUG 2018-12-23 00:00:00 [facility] SCREEN,COMPREHENSIVE Physicians (URINE) [QH] DRUG 2018-11-25 00:00:00 [facility] SCREEN,COMPREHENSIVE Physicians (URINE) [QH] DRUG 2018-11-16 00:00:00 [facility] SCREEN,COMPREHENSIVE Physicians (URINE) [QH] DRUG 2018-10-28 00:00:00 [facility] SCREEN,COMPREHENSIVE Physicians (URINE) [QH] DRUG 2018-10-14 00:00:00 [facility] SCREEN,COMPREHENSIVE Physicians (URINE) [QH] DRUG 2018-09-30 00:00:00 [facility] SCREEN,COMPREHENSIVE Physicians (URINE) [QLH] SED RATE BY 2018-09-22 00:00:00 [facility] MODIFIED WESTERGREN Physicians [QLH] C-REACTIVE PROTEIN 2018-09-22 00:00[facility]00 [facility] CMP W/EGFR 2018-09-22 00:00:00 [facility] Physicians [QLH] CBC (INCLUDES 2018-09-22 00:00:00 [facility] DIFF/PLT) Physicians [QLH] RHEUMATOID FACTOR 2018-09-22 00:00:00 [facility] [[facility]H] CYCLIC 2018-09-22 00:00:00 [facility] CITRULLINATED PEPTIDE Physicians (CCP) AB (IGG) XRAY Hand AP lateral 2018-09-22 00:00:00 [facility] oblique Bilateral [id number] Physicia ns XRAY Knee 4+ views bilat 2018-09-22 00:00:00 [facility] [id number] Phys[facility] [QH] DRUG 2018-09-14 00:00:00 [facility] SCREEN,COMPREHENSIVE Physicians (URINE) Encounters Start End Encounter Admission Attending Care Care Encounter Source Date/Time Date/Time Type Type Clinicians Facility Department ID 2019-12-07 2019-12-08 Outpatient [facility] [id number] 16:44:44 23:59:59 02 2019-11-16 2019-11-17 Outpatient [facility] [id number] 13:16:42 13:16:42 02 2019-11-15 2019-11-15 Outpatient Knight, [facility] [id number] 09:00:00 23:59:59 Ken 01 Serene 2019-10-05 2019-10-05 AppointMAXIM [facility] [id number] Univers 13:30:00 13:30:00 t; NADINE HINOJOSA, [facility] ans 2019-09-13 2019-09-13 AppointMAXIM [facility] [id number] Univers 11:30:00 11:30:00 t; NADINE HINOJOSA, [facility] ans 2019-08-24 2019-08-24 Appointalexandro HINOJOSA [facility] Psychiatry [id number] Univers 14:00:00 14:00:00 t; NADINE HINOJOSA, [facility] 2019-08-10 2019-08-10 AppointMAXIM [facility] [id number] Univers 14:00:00 14:00:00 t; NADINE HINOJOSA, [facility] Physici ans 2019-07-20 2019-07-20 AppointMAXIM [facility] [id number] Univers 15:00:00 15:00:00 t; NADINE HINOJOSA, Outpatient ity of [place] M[facility] BBSB Physici ans 2019-07-06 2019-07-06 Appointmen ASHISH [facility] Psychiatry [id number] Univers 15:30:00 15:30:00 t; HINOJOSA, NADINE, [facility] 2019-06-22 2019-06-22 Appointmen ASHISH [facility] Psychiatry [id number] Univers 16:30:00 16:30:00 t; ASHISH NADINE, Outpatient ity of [place] M[facility] BBSB Physici ans 2019-06-07 2019-06-07 Appointmen ASHISH [facility] Psychiatry [id number] Univers 11:30:00 11:30:00 t; HINOJOSA, NADINE, Outpatient ity of [facility] MCOCY [facility] BBSB Physici ans 2019-05-17 2019-05-17 Appointmen ASHISH [facility] Psychiatry [id number] Univers 14:00:00 14:00:00 t; HINOJOSA NADINE, Outpatient ity of [place] M[facility] BBSB Physici ans 2019-05-04 2019-05-04 Appointmen MARQUEZ [facility] Psychiatry [id number] Univers 10:30:00 10:30:00 t; YOHAN ZAYAS, Outpatient ity [facility] ans 2019-04-06 2019-04-06 Appointmen MARQUEZ [facility] Psychiatry [id number] Univers 11:00:00 11:00:00 t; YOHAN ZAYAS, Outpatient ity of [place] ALMANZAR [facility] BBSB Physici ans 2019-04-02 2019-04-03 Outpatient [facility] [id number] 08:42:06 23:59:59 2019-03-29 2019-03-29 Appointmen MAXIM STEPHENSON [facility] [id number] Univers 14:00:00 14:00:00 t; FORTINO STEPHENSON M.D. ty of [place] FREITAS [place] Physici ans 2019-03-11 2019-03-12 Outpatient [facility] [id number] 10:32:32 23:59:59 00 2019-03-09 2019-03-09 Appointmen MARQUEZ [facility] Psychiatry [id number] Univers 11:30:00 11:30:00 t; YOHAN ZAYAS, Outpatient [facility] Physici ans 2019-03-08 2019-03-08 Outpatient Antonia [facility] [id number] 14:15:00 23:59:59 Ken Sadiq Cast 2019-02-26 2019-02-26 [facility] [id number] 09:03:06 09:30:13 Visit [facility] [id number] [place] [id number] Special [id number] [place] 2019-02-16 2019-02-16 Appointmen MARQUEZ [facility] Psychiatry [id number] Univers 11:00:00 11:00:00 t; YOHAN ZAYAS, [facility] 2019-01-20 2019-01-20 Appointmen MARQUEZ [facility] Psychiatry [id number] Univers 13:00:00 13:00:00 t; YOHAN ZAYAS, [facility]patient [facility] ans 2018-12-23 2018-12-23 Appointmen MARQUEZ [facility] Psychiatry [id number] Univers 09:30:00 09:30:00 t; YOHAN AZYAS, Outpatient [facility] Physici ans 2018-11-25 2018-11-25 Appointmen MARQUEZ [facility] Psychiatry [id number] Univers 09:30:00 09:30:00 t; YOHAN ZAYAS, Outpatient [facility] Physici ans 2018-10-28 2018-10-28 Appointmen MARQUEZ [facility] Psychiatry [id number] Univers 09:30:00 09:30:00 t; YOHAN ZAYAS, Outpatient [facility] Physici ans 2018-10-14 2018-10-14 Appointmen MARQUEZ [facility] Psychiatry [id number] Univers 09:30:00 09:30:00 t; YOHAN ZAYAS, [facility] ans 2018-09-30 2018-09-30 Appointmen MAXIM ZAYAS Psychiatry [id number] Univers 09:30:00 09:30:00 t; YOHAN ZAYAS, Outpatient [facility] 2018-09-22 2018-09-22 Outpatient Fortino Stephenson [facility] [id number] 09:51:00 23:59:00 C 00 2018-09-22 2018-09-22 Appointmen MAXIM STEPHENSON Rheumatolog [id number] Univers 08:00:00 08:00:00 t; FORTINO STEPHENSON M.D. i ty of [place] FREITAS [place] Physici ans 2018-09-14 2018-09-14 Appointmen MAXIM ZAYAS [id number] Univers 09:30:00 09:30:00 t; YOHAN ZAYAS ity [facility] 2018-08-26 2018-08-26 Appointmen MARQUEZ, MAXIM PAN [id number] Univers 08:00:00 08:00:00 t; YOHAN ZAYAS ity of [place] [facility] 2018-08-13 2018-08-13 Appointmen MARQUEZ, MAXIM UTP [id number] Univers 15:00:00 15:00:00 t; YOHAN ZAYAS ity of [place] AL[place] [facility] Physici ans 2018-07-21 2018-07-21 Appointmen MARQUEZ, MAXIM UTP [id number] Univers 14:30:00 14:30:00 t; YOHAN ZAYAS ity of [place] [facility] 2018-07-07 2018-07-07 Appointmen MARQUEZ, MAXIM UTP [id number] Univers 08:00:00 08:00:00 t; YOHAN ZAYAS ity of [place] AL[place] [facility] Physici ans 2018-06-23 2018-06-23 Appointmen MARQUEZ, MAXIM UTP [id number] Univers 10:00:00 10:00:00 t; YOHAN ZAYAS ity of [place] AL[place] [facility] Physici ans 2018-06-16 2018-06-16 Appointmen MARQUEZ MAXIM UTP [id number] Univers 14:30:00 14:30:00 t; YOHAN ZAYAS ity of [place], M.D. [facility] 2018-06-09 2018-06-09 Appointmen MARQUEZ MAXIM UTP [id number] Univers 10:00:00 10:00:00 t; YOHAN ZAYAS ity of [place], M.D. [facility] 2018-06-02 2018-06-02 Appointmen MARQUEZ MAXIM UTP [id number] Univers 08:00:00 08:00:00 t; YOHAN ZAYAS ity of [place], M.D. [facility] 2018-06-01 2018-06-01 Appointmen MARQUEZ MAXIM UTP [id number] Univers 08:00:00 08:00:00 t; YOHAN ZAYAS ity of [place], M.D. [facility] 2018-05-25 2018-05-25 Appointmen MARQUEZ MAXIM UTP [id number] Univers 14:30:00 14:30:00 t; YOHAN ZAYAS ity of [place], M.D. [facility] Physici ans Results Test Description Test Time Test Comments Results Result Comments Source CHEM PANEL 2019-11-15 82 [facility] 14:40:00 CHEM PANEL 2019-11-15 7 [facility] [place] [facility] 14:40:00 CHEM PANEL 2019-11-15 0.65 [facility] [place] [facility] 14:40:00 CHEM PANEL 2019-11-15 103 [facility] [place] [facility] 14:40:00 CHEM PANEL 2019-11-15 119 [facility] [place] [facility] 14:40:00 CHEM PANEL 2019-11-15 139 [facility] [place] 14:40:00 CHEM PANEL 2019-11-15 4.3 [facility] [place] [facility] 14:40:00 CHEM PANEL 2019-11-15 103 [facility] 14:40:00 CHEM PANEL 2019-11-15 28 [facility] [place] [facility] 14:40:00 CHEM PANEL 2019-11-15 9.3 [facility] [place] [facility] 14:40:00 CHEM PANEL 2019-11-15 6.9 [facility] [place] [facility] 14:40:00 CHEM PANEL 2019-11-15 4.3 [facility] [place] [facility] 14:40:00 CHEM PANEL 2019-11-15 2.6 Paola Wills nn 14:40:00 CHEM PANEL 2019-11-15 1.7 Paola Wills nn 14:40:00 CHEM PANEL 2019-11-15 0.3 Paola Wills nn 14:40:00 CHEM PANEL 2019-11-15 68 [facility] [place] [facility] 14:40:00 CHEM PANEL 2019-11-15 20 [facility] [place] [facility] 14:40:00 CHEM PANEL 2019-11-15 25 Paola Wills nn 14:40:00 LIPIDS 2019-11-15 153 [facility] 14:40:00 LIPIDS 2019-11-15 44 Paola Wills nn 14:40:00 LIPIDS 2019-11-15 111 Paola Wills nn 14:40:00 LIPIDS 2019-11-15 88 Paola Wills nn 14:40:00 LIPIDS 2019-11-15 3.5 Paola Wills nn 14:40:00 LIPIDS 2019-11-15 109 Paola Wills nn 14:40:00 SPECIAL CHEMISTRY 2019-11-15 5.5 Memmelvi Acosta 14:40:00 [Q] DRUG SCREEN,COMPREHENSIVE (URINE) 2019-10-06 15:11:00 Test Item Value Reference Range Interpretation Comme nts PLEASE NOTE: (test See Below * These r esults are for medical treatment code = PLEASE NOTE:) only. * * Analysis was performed as non-forensic te sting. * URINE RESULTS (test DRUG(S) DETECTED: A code = URINE RESULTS) See Comment (test code See Comment A PATIE NT RESULTS ARE INDICATED ABOVE. = See Comment) URINE WAS LIZY NAT FOR THE FOLLOWING: ANALGESICS BARBITURATES PHENCYCLI DINEANTIARRYTHMICS BENZODIAZEPINE METABS. SEDATIVES/HYPNO TICSANTICONVULSANTS CANNABINOIDS STIMULANTSANTID EPRESSANTS COCAINE METABOLITE VOLATILESANTIHI STAMINES OPIATES/NARCOTI CSANTIPSYCHOTICS MUSCLE RELAXANT S PLEASE REFER TO CURRENT DIRECTORY OF SE RVICES FOR SPECIFICS ONWHICH DRUGS A RE TESTED. [facility] Physicians[Q] DRUG SCREEN,COMPREHENSIVE (URINE)2019-07-21 11:56:00 Test Item Value Reference Interpretation Comments Range PLEASE NOTE: See Below * These results are for medical (test code = treatment only. * * Analysis PLEASE was performed a s non-forensic NOTE:) testing. * URINE DRUG(S) A RESULTS DETECTED: (test code = URINE RESULTS) See Comment See Comment A PATIENT RESULTS ARE INDICATED (test code = ABOVE. URINE W TESTED FOR THE See Comment) FOLLOWING: MANJINDER LGESICS BARBITURATES PHENCYCLIDINEAN TIARRYTHMICS BENZODIAZEPINE METABS. SEDATIVES/HYPNO TICSANTICONVULSAN TS CANNABI NOIDS STIMULANTSANT IDEPRESSANTS COCAINE METABOL ITE VOLATILESANTIHI STAMINES OPIATES/NARCOTI CSANTIPSYCHOTICS MUSCLE REL AXANTS PLEASE REFER TO Gurnard Perch [employer] OF SERVICES FOR SP ECIFICS ONWHICH DRUGS ARE TESTE DMario [facility] Physicians[] DRUG SCREEN,COMPREHENSIVE (URINE)2019-06-23 15:52:00 Test Item Value Reference Interpretation Comments Range PLEASE NOTE: See Below * These results are for medical (test code = treatment only. * * Analysis PLEASE was performed a s non-forensic NOTE:) testing. * URINE DRUG(S) A RESULTS DETECTED: (test code = URINE RESULTS) See Comment See Comment A PATIENT RESULTS ARE INDICATED (test code = ABOVE. URINE W TESTED FOR THE See Comment) FOLLOWING: MANJINDER LGESICS BARBITURATES PHENCYCLIDINEAN TIARRYTHMICS BENZODIAZEPINE METABS. SEDATIVES/HYPNO TICSANTICONVULSAN TS CANNABI NOIDS STIMULANTSANT IDEPRESSANTS COCAINE METABOL ITE VOLATILESANTIHI STAMINES OPIATES/NARCOTI CSANTIPSYCHOTICS MUSCLE REL AXANTS PLEASE REFER TO [employer] OF SERVICES FOR SP ECIFICS ONWHICH DRUGS ARE TESTMonico [facility][] DRUG SCREEN,COMPREHENSIVE (URINE)2019-05-31 11:53:00 Test Item Value Reference Interpretation Comments Range PLEASE NOTE: See Below * These results are for medical (test code = treatment only. * * Analysis PLEASE was performed a s non-forensic NOTE:) testing. * URINE DRUG(S) A RESULTS DETECTED: (test code = URINE RESULTS) See Comment See Comment A PATIENT RESULTS ARE INDICATED (test code = ABOVE. URINE W TESTED FOR THE See Comment) FOLLOWING: MANJINDER [employer] BARBITURATES PHENCYCLIDINEAN TIARRYTHMICS BENZODIAZEPINE METABS. SEDATIVES/HYPNO TICSANTICONVULSAN TS CANNABI NOIDS STIMULANTSANT IDEPRESSANTS COCAINE METABOL ITE VOLATILESANTIHI STAMINES OPIATES/NARCOTI CSANTIPSYCHOTICS MUSCLE REL AXANTS PLEASE REFER TO CURREN T DIRECTORY OF SERVICES FOR SP ECIFICS ONWHICH DRUGS ARE TESTE [facility][] DRUG SCREEN,COMPREHENSIVE (URINE)2019-05-31 11:53:00 Test Item Value Reference Interpretation Comments Range PLEASE NOTE: See Below * These results are for medical (test code = treatment only. * * Analysis PLEASE was performed a s non-forensic NOTE:) testing. * URINE DRUG(S) A RESULTS DETECTED: (test code = URINE RESULTS) See Comment See Comment A PATIENT RESULTS ARE INDICATED (test code = ABOVE. URINE W TESTED FOR THE See Comment) FOLLOWING: [employer]JINDER [employer]ATES PHENCYCLIDINEAN TIARRYTHMICS BENZODIAZEPINE METABS. SEDATIVES/HYPNO TICSANTICONVULSAN TS CANNABI NOIDS STIMULANTSANT IDEPRESSANTS COCAINE METABOL ITE VOLATILESANTIHI STAMINES OPIATES/NARCOTI CSANTIPSYCHOTICS MUSCLE REL AXANTS PLEASE REFER TO Gurnard Perch [facility] Channel [employer] OF SERVICES FOR SP ECIFICS ONWHICH DRUGS ARE TESTE [facility][] DRUG SCREEN,COMPREHENSIVE (URINE)2019-04-28 10:22:00 Test Item Value Reference Interpretation Comments Range PLEASE NOTE: See Below * These results are for medical (test code = treatment only. * * Analysis PLEASE was performed a s non-forensic NOTE:) testing. * URINE DRUG(S) A RESULTS DETECTED: (test code = URINE RESULTS) See Comment See Comment A PATIENT RESULTS ARE INDICATED (test code = ABOVE. URINE W TESTED FOR THE See Comment) FOLLOWING: MANJINDER [employer]ATES PHENCYCLIDINEAN TIARRYTHMICS BENZODIAZEPINE METABS. SEDATIVES/HYPNO TICSANTICONVULSAN TS CANNABI NOIDS STIMULANTSANT IDEPRESSANTS COCAINE METABOL ITE VOLATILESANTIHI STAMINES OPIATES/NARCOTI CSANTIPSYCHOTICS MUSCLE REL AXANTS PLEASE REFER TO [employer] DIRECTORY OF SERVICES FOR SP ECIFICS ONWHICH DRUGS ARE TESTE [facility][] DRUG SCREEN,COMPREHENSIVE (URINE)2019-03-29 11:47:00 Test Item Value Reference Interpretation Comments Range PLEASE NOTE: See Below * These results are for medical (test code = treatment only. * * Analysis PLEASE was performed a s non-forensic NOTE:) testing. * URINE DRUG(S) A RESULTS DETECTED: (test code = URINE RESULTS) See Comment See Comment A PATIENT RESULTS ARE INDICATED (test code = ABOVE. URINE W TESTED FOR THE See Comment) FOLLOWING: MANJINDER [employer]ATES PHENCYCLIDINEAN TIARRYTHMICS BENZODIAZEPINE METABS. SEDATIVES/HYPNO TICSANTICONVULSAN TS CANNABI NOIDS STIMULANTSANT IDEPRESSANTS COCAINE METABOL ITE VOLATILESANTIHI STAMINES OPIATES/NARCOTI CSANTIPSYCHOTICS MUSCLE REL AXANTS PLEASE REFER TO [employer] [facility] DIRECTORY OF SERVICES FOR SP ECIFICS ONWHICH DRUGS ARE TESTMonico [facility][] DRUG SCREEN,COMPREHENSIVE (URINE)2019-03-01 14:15:00 Test Item Value Reference Interpretation Comments Range PLEASE NOTE: See Below * These results are for medical (test code = treatment only. * * Analysis PLEASE was performed a s non-forensic NOTE:) testing. * URINE DRUG(S) A RESULTS DETECTED: (test code = URINE RESULTS) See Comment See Comment A PATIENT RESULTS ARE INDICATED (test code = ABOVE. URINE W TESTED FOR THE See Comment) FOLLOWING: MANJINDER [employer]ATES PHENCYCLIDINEAN TIARRYTHMICS BENZODIAZEPINE METABS. SEDATIVES/HYPNO TICSANTICONVULSAN TS CANNABI NOIDS STIMULANTSANT IDEPRESSANTS COCAINE METABOL ITE VOLATILESANTIHI STAMINES OPIATES/NARCOTI CSANTIPSYCHOTICS MUSCLE REL AXANTS PLEASE REFER TO [employer] DIRECTORY OF SERVICES FOR SP ECIFICS ONWHICH DRUGS ARE TESTMonico [facility][] DRUG SCREEN,COMPREHENSIVE (URINE)2019-02-12 15:01:00 Test Item Value Reference Interpretation Comments Range PLEASE NOTE: See Below * These results are for medical (test code = treatment only. * * Analysis PLEASE was performed a s non-forensic NOTE:) testing. * URINE DRUG(S) A RESULTS DETECTED: (test code = URINE RESULTS) See Comment See Comment A PATIENT RESULTS ARE INDICATED (test code = ABOVE. URINE W TESTED FOR THE See Comment) FOLLOWING: MANJINDER [employer] PHENCYCLIDINEAN TIARRYTHMICS BENZODIAZEPINE METABS. SEDATIVES/HYPNO TICSANTICONVULSAN TS CANNABI NOIDS STIMULANTSANT IDEPRESSANTS COCAINE METABOL ITE VOLATILESANTIHI STAMINES OPIATES/NARCOTI CSANTIPSYCHOTICS MUSCLE REL AXANTS PLEASE REFER TO [facility] DIRECTORY OF SERVICES FOR SP ECIFICS ONWHICH DRUGS ARE TESTE D. [facility][] DRUG SCREEN,COMPREHENSIVE (URINE)2019-01-18 15:58:00 Test Item Value Reference Interpretation Comments Range PLEASE NOTE: See Below * These results are for medical (test code = treatment only. * * Analysis PLEASE was performed a s non-forensic NOTE:) testing. * URINE DRUG(S) A RESULTS DETECTED: (test code = URINE RESULTS) See Comment See Comment A PATIENT RESULTS ARE INDICATED (test code = ABOVE. URINE W TESTED FOR THE See Comment) FOLLOWING: MANJINDER [employer] BAR[employer]ATES PHENCYCLIDINEAN TIARRYTHMICS BENZODIAZEPINE METABS. SEDATIVES/HYPNO TICSANTICONVULSAN TS CANNABI NOIDS STIMULANTSANT IDEPRESSANTS COCAINE METABOL ITE VOLATILESANTIHI STAMINES OPIATES/NARCOTI CSANTIPSYCHOTICS MUSCLE REL AXANTS PLEASE REFER [facility] DIRECTORY OF SERVICES FOR SP ECIFICS ONWHICH DRUGS ARE TESTE D. [facility][] DRUG SCREEN,COMPREHENSIVE (URINE)2018-12-18 10:19:00 Test Item Value Reference Interpretation Comments Range PLEASE NOTE: See Below * These results are for (test code = medical treatme nt only. * * PLEASE NOTE:) Analysis was p erformed as non-forensic te sting. * URINE RESULTS DRUG(S) A (test code = DETECTED: URINE RESULTS) OPIATES BY OPIATES BY A IMMUNOASSAY IMMUNOASSAY (test code = OPIATES BY IMMUNOASSAY) See Comment See Comment A PATIENT RESULTS ARE INDICATED (test code = ABOVE. URINE W TESTED FOR See Comment) THE FOLLOWING: [employer] BARBITURA LIZY PHENCYCLIDINE ANTIARRYTHMICS BENZODIAZE PINE METABS. SEDATIVES/HYPN OTICSANTICONVUL SANTS SIVAKUMAR ABINOIDS STIMULANTSANTID EPRESSANTS COCAINE METABOL ITE VOLATILESANTIHI STAMINES OPIATES/NARCOTI CSANTIPSYCHOTIC S MUSCLE RELAXANTS PLEASE REFER TO CURRENT DIRECTORY OF SE RVICES FOR SPECIFICS ONWHI CH DRUGS ARE TESTED. [facility][] DRUG SCREEN,COMPREHENSIVE (URINE)2018-11-16 10:50:00 Test Item Value Reference Interpretation Comments Range PLEASE NOTE: See Below * These results are for medical (test code = treatment only. * * Analysis PLEASE was performed a s non-forensic NOTE:) testing. * URINE DRUG(S) A RESULTS DETECTED: (test code = URINE RESULTS) See Comment See Comment A PATIENT RESULTS ARE INDICATED (test code = ABOVE. URINE W TESTED FOR THE See Comment) FOLLOWING: [employer] PHENCYCLIDINEAN TIARRYTHMICS BENZODIAZEPINE METABS. SEDATIVES/HYPNO TICSANTICONVULSAN TS CANNABI NOIDS STIMULANTSANT IDEPRESSANTS COCAINE METABOL ITE VOLATILESANTIHI STAMINES OPIATES/NARCOTI CSANTIPSYCHOTICS MUSCLE REL AXANTS PLEASE REFER TO [employer] OF SERVICES FOR SP ECIFICS ONWHICH DRUGS ARE TESTE D. [facility][] DRUG SCREEN,COMPREHENSIVE (URINE)2018-10-21 11:25:00 Test Item Value Reference Interpretation Comments Range PLEASE NOTE: See Below * These results are for medical (test code = treatment only. * * Analysis PLEASE was performed a s non-forensic NOTE:) testing. * URINE DRUG(S) A RESULTS DETECTED: (test code = URINE RESULTS) See Comment See Comment A PATIENT RESULTS ARE INDICATED (test code = ABOVE. URINE W TESTED FOR THE See Comment) FOLLOWING: MANJINDER [employer] PHENCYCLIDINEAN TIARRYTHMICS BENZODIAZEPINE METABS. SEDATIVES/HYPNO TICSANTICONVULSAN TS CANNABI NOIDS STIMULANTSANT IDEPRESSANTS COCAINE METABOL ITE VOLATILESANTIHI STAMINES OPIATES/NARCOTI CSANTIPSYCHOTICS MUSCLE REL AXANTS PLEASE REFER TO [employer] OF SERVICES FOR SP ECIFICS ONWHICH DRUGS ARE TESTE D. [facility][] DRUG SCREEN,COMPREHENSIVE (URINE)2018-10-07 12:00:00 Test Item Value Reference Interpretation Comments Range PLEASE NOTE: See Below * These results are for medical (test code = treatment only. * * Analysis PLEASE was performed a s non-forensic NOTE:) testing. * URINE DRUG(S) A RESULTS DETECTED: (test code = URINE RESULTS) See Comment See Comment A PATIENT RESULTS ARE INDICATED (test code = ABOVE. URINE W TESTED FOR THE See Comment) FOLLOWING: MANJINDER [employer] PHENCYCLIDINEAN TIARRYTHMICS BENZODIAZEPINE METABS. SEDATIVES/HYPNO TICSANTICONVULSAN TS CANNABI NOIDS STIMULANTSANT IDEPRESSANTS COCAINE METABOL ITE VOLATILESANTIHI STAMINES OPIATES/NARCOTI CSANTIPSYCHOTICS MUSCLE REL AXANTS PLEASE REFER TO [facility] DIRECTORY OF SERVICES FOR SP ECIFICS ONWHICH DRUGS ARE ERNESTINA Jerez [facility][] DRUG SCREEN,COMPREHENSIVE (URINE)2018-09-23 07:57:00 Test Item Value Reference Interpretation Comments Range PLEASE NOTE: See Below * These results are for medical (test code = treatment only. * * Analysis PLEASE was performed a s non-forensic NOTE:) testing. * URINE DRUG(S) A RESULTS DETECTED: (test code = URINE RESULTS) See Comment See Comment A PATIENT RESULTS ARE INDICATED (test code = ABOVE. URINE W TESTED FOR THE See Comment) FOLLOWING: [employer]JINDER [employer] PHENCYCLIDINEAN TIARRYTHMICS BENZODIAZEPINE METABS. SEDATIVES/HYPNO TICSANTICONVULSAN TS CANNABI NOIDS STIMULANTSANT IDEPRESSANTS COCAINE METABOL ITE VOLATILESANTIHI STAMINES OPIATES/NARCOTI CSANTIPSYCHOTICS MUSCLE REL AXANTS PLEASE REFER TO [facility] DIRECTORY OF SERVICES FOR SP ECIFICS ONWHICH DRUGS ARE ERNESTINA Jerez [facility]] CMP [id number] 07:55:00 Test Item Value Reference Range Interpretation Comments GLUCOSE; Above 106 mg/dl 65-99 Fasting refer ence High Threshold interval For someone (test code = without known 1547-9) diabetes, a glu cose valuebetween 10 0 and 125 mg/dL is consistent withprediabetes and should be confi rmed with afollow-up test. UREA NITROGEN 14 mg/dl 7-25 N (BUN) (test code = UREA NITROGEN (BUN)) CREATININE (test 0.59 mg/dl 0.50-1.05 N For patient s >49 years code = of age, the ref erence CREATININE) limitfor Creati nine is approximately 1 3% higher for peopleidentifie d as -Hamida n. eGFR NON- 107 {ML/MIN/1.7} > OR = 60 N BOLIVIAN (test code = eGFR NON-) eGFR 124 {ML/MIN/1.7} > OR = 60 N BOLIVIAN (test code = eGFR ) BUN/CREATININE NOT APPLICABLE 6-22 RATIO (test code = BUN/CREATININE RATIO) SODIUM (test code 142 mmol/L 135-146 N = SODIUM) POTASSIUM (test 4.7 mmol/L 3.5-5.3 N code = POTASSIUM) CHLORIDE (test 105 mmol/L 98-110 N code = CHLORIDE) CARBON DIOXIDE 29 mmol/L 20-32 N (test code = CARBON DIOXIDE) CALCIUM (test 10.0 mg/dl 8.6-10.4 N code = CALCIUM) PROTEIN, TOTAL 7.0 g/dl 6.1-8.1 N (test code = PROTEIN, TOTAL) ALBUMIN (test 4.3 g/dl 3.6-5.1 N code = ALBUMIN) GLOBULIN (test 2.7 {G/DL CALC} 1.9-3.7 N code = GLOBULIN) ALBUMIN/GLOBULIN 1.6 {CALC} 1.0-2.5 N RATIO (test code = ALBUMIN/GLOBULIN RATIO) BILIRUBIN, TOTAL; 0.2 mg/dl 0.2-1.2 N Normal (test code = 28494-4) ALKALINE 53 u/l 33-130 N PHSPHATASE (test code = ALKALINE PHSPHATASE) AST; Normal (test 17 u/l 10-35 N code = 1916-6) ALT; Normal (test 18 u/l 6-29 N code = 1742-6) [facility]] SED RATE BY MODIFIED [id number] 07:55:00 Test Item Value Reference Range Interpretation Comments SED RATE BY MODIFIED JOE (test 11 mm/h < OR = 20 N code = SED RATE BY MODIFIED JOE) [facility]] CBC (INCLUDES DIFF/PLT)2018-09-23 07:55:00 Test Item Value Reference Range Interpretation Comments WHITE BLOOD CELL COUNT 7.8 {Thousand/u} 3.8-10.8 N (test code = WHITE BLOOD CELL COUNT) RED BLOOD CELL COUNT (test 4.38 {Million/uL} 3.80-5.10 N code = RED BLOOD CELL COUNT) HEMAGLOBIN; Normal (test 12.7 g/dl 11.7-15.5 N code = 06161-6) HEMATOCRIT; Normal (test 38.4 % 35.0-45.0 N code = 4544-3) MCV; Normal (test code = 87.7 fL 80.0-100.0 N 787-2) MCHC; Normal (test code = 33.1 g/dl 32.0-36.0 N 63969-6) RDW; Normal (test code = 13.0 % 11.0-15.0 N 788-0) PLATELET COUNT; Normal 223 {Thousand/u} 140-400 N (test code = 777-3) MPV; Normal (test code = 10.7 fL 7.5-12.5 N 63183-6) ABSOLUTE NEUTROPHILS (test 3830 {cells/uL} 9018-5507 N code = ABSOLUTE NEUTROPHILS) ABSOLUTE LYMPHOCYTES (test 2917 {cells/uL} 850-3900 N code = ABSOLUTE LYMPHOCYTES) ABSOLUTE MONOCYTES (test 819 {cells/uL} 200-950 N code = ABSOLUTE MONOCYTES) ABSOLUTE EOSINOPHILS (test 172 {cells/uL} 15-500 N code = ABSOLUTE EOSINOPHILS) ABSOLUTE BASOPHILS (test 62 {cells/uL} 0-200 N code = ABSOLUTE BASOPHILS) NEUTROPHILS (test code = 49.1 % N NEUTROPHILS) LYMPHOCYTES (test code = 37.4 % N LYMPHOCYTES) MONOCYTES; Normal (test 10.5 % N code = 29289-6) EOSINOPHILS; Normal (test 2.2 % N code = 69931-7) BASOPHILS; Normal (test 0.8 % N code = 32976-0) [facility][] CYCLIC CITRULLINATED PEPTIDE (CCP) AB (IGG) 2018-09-23 07:55:00 Test Item Value Reference Range Interpretation Comments CYCLIC CITRULLINATED <16 N Referen ce PEPTIDE (CCP) AB (IGG) Range Negative: (test code = CYCLIC <20We ak Positive: CITRULLINATED PEPTIDE 20 -39Moderate (CCP) AB (IGG)) Positive: 40-59Strong Pos itive: >59 [facility]] RHEUMATOID [id number] 07:55:00 Test Item Value Reference Range Interpretation Comments RHEUMATOID FACTOR (test code = <14 <14 N RHEUMATOID FACTOR) [facility]] C-REACTIVE [id number] 07:55:00 Test Item Value Reference Range Interpretation Comments C-REACTIVE PROTEIN (test code = 2.4 mg/L <8.0 N C-REACTIVE PROTEIN) [facility] AP lateral oblique Bilateral [id number] 2018-09-22 09:59:00EXAM: XR BILATERAL HAND 4 VIEWSDATE: 09/22/2018 9:59 CDTINDICATION: - M13.0 Polyarthritis, unspecifiedCOMPARISON: None available.TECHNIQUE: Sonia COVARRUBIAS, lateral and oblique radiographs of the bilateralhands.FINDINGS: No acute fracture or malalignment is identified. Joint spaces andbone mineral density are preserved.No erosions, periostitis or ankylosis is present.No soft tissue abnormality is identified.IMPRESSION: 1. No acute abnormality.2. No radiographic evidence of inflammatory arthropathy.-- Read by: Sandee Shannon MDDictated Date/time: 09/22/18 10:32Electronically Signed by: Sandee Shannon MD 09/22/1909:34FINAL [facility] bilat [id number] 09:59:00 EXAM: XR BILATERAL KNEE 4 VIEWSDATE: 09/22/2018 9:59 CDTINDICATION: - M13.0 Polyarthritis, unspecifiedCOMPARISON: None available.TECHNIQUE: 4 views of the kneeFINDINGS: No acute fracture or malalignment is identified.Suggestion of prior left anterior cruciate ligament reconstruction. Thehardware is intact without evidence of loosening.Minimal osteophytes are present along the left medial compartment. A smalljoint body measuring approximately 0.7 cm seen along the anterior joint line onthe left.Joint spaces are preserved bilaterally.There is no excessive joint fluid. No soft tissue abnormality is id entified.IMPRESSION: 1. No acute bony abnormality.2. Prior left anterior cruciate ligament reconstruction without hardwarecomplications.3. Mild degenerative changes of the left knee with minimal osteophytes alongthe medial compartment.--Read by: Sandee Shannon MDDictated Date/time: 09/22/18 10:39El ectronically Signed by: Sandee Shannon MD 09/22/1909:42FINAL REPORTUnK[facility][] DRUG SCREEN,COMPREHENSIVE (URINE)2018-09-08 11:53:00 Test Item Value Reference Interpretation Comments Range PLEASE NOTE: See Below * These results are for medical (test code = treatment only. * * Analysis PLEASE was performed a s non-forensic NOTE:) testing. * URINE DRUG(S) A RESULTS DETECTED: (test code = URINE RESULTS) See Comment See Comment A PATIENT RESULTS ARE INDICATED (test code = ABOVE. URINE W TESTED FOR THE See Comment) FOLLOWING: [employer] PHENCYCLIDINEAN TIARRYTHMICS BENZODIAZEPINE METABS. SEDATIVES/HYPNO TICSANTICONVULSAN TS CANNABI NOIDS STIMULANTSANT IDEPRESSANTS COCAINE METABOL ITE VOLATILESANTIHI STAMINES OPIATES/NARCOTI CSANTIPSYCHOTICS MUSCLE REL AXANTS PLEASE REFER TO [employer] DIRECTORY OF SERVICES FOR SP ECIFICS ONWHICH DRUGS ARE ERNESTINA Jerez [facility][] DRUG SCREEN,COMPREHENSIVE (URINE)2018-08-19 12:50:00 Test Item Value Reference Interpretation Comments Range PLEASE NOTE: See Below * These results are for medical (test code = treatment only. * * Analysis PLEASE was performed a s non-forensic NOTE:) testing. * URINE DRUG(S) A RESULTS DETECTED: (test code = URINE RESULTS) See Comment See Comment A PATIENT RESULTS ARE INDICATED (test code = ABOVE. URINE W TESTED FOR THE See Comment) FOLLOWING: [employer] PHENCYCLIDINEAN TIARRYTHMICS BENZODIAZEPINE METABS. SEDATIVES/HYPNO TICSANTICONVULSAN TS CANNABI NOIDS STIMULANTSANT IDEPRESSANTS COCAINE METABOL ITE VOLATILESANTIHI STAMINES OPIATES/NARCOTI CSANTIPSYCHOTICS MUSCLE REL AXANTS PLEASE REFER TO [employer] DIRECTORY OF SERVICES FOR SP ECIFICS ONWHICH DRUGS ARE ERNESTINA Jerez [facility]
--- OUTSIDE RECORDS SUMMARY | 2019-12-15 17:11 | XMS REPORT | Summary of Care ---
:1970 Author Name NADINE HINOJOSA M.D. Address Unavailable Unavailable , Care Team Providers Name Role Phone NADINE HINOJOSA M.D. 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 On: 25-May-2018 14:30 Encounter Diagnosis: Problem not documented Appointment; YOHAN ZAYAS M.D. On: 01-Jun-2018 8:00 Encounter Diagnosis: Problem not documented Appointment; YOHAN ZAYAS M.D. On: 02-Jun-2018 8:00 Encounter Diagnosis: Problem not documented Appointment; YOHAN ZAYAS M.D. On: 09-Jun-2018 10:00 Encounter Diagnosis: Problem not documented Appointment; YOHAN AZYAS M.D. On: 16-Jun-2018 14:30 Encounter Diagnosis: Problem [...] Encounter Diagnosis: Problem not documented Appointment; YOHAN AZYAS M.D. On: 20-Jan-2019 13:00 Encounter Diagnosis: Problem [...] 30 Encounter Diagnosis: Problem not documented Appointment; NADIEN HINOJOSA M.D. On: 06-Jul-2019 15: 30 Encounter [...]
--- NOTE | 2019-12-15 19:13 | RAD REPORT ---
EXAM DESCRIPTION: CT - Head Brain Wo Cont - 12/15/2019 7:00 pm CLINICAL HISTORY: DIZZINESS Headache, drowsiness, hypertension COMPARISON: No comparisons TECHNIQUE: All CT scans are performed using dose optimization technique as appropriate and may inclu de automated exposure control or mA/KV adjustment according to patient size. FINDINGS: No intracranial hemorrhage, hydrocephalus or extra-axial fluid collection.No areas of brai n edema or evidence of midline shift. The paranasal sinuses and mastoids are clear. The calvarium is intact. IMPRESSION: No acute intracranial abnormality.
--- NOTE | 2019-12-15 19:44 | EDPHYS ---
Physician Documentation [facility] Name: Sienna Lee Age: 49 yrs Sex: Female : 1970 Arrival Date: 12/15/2019 Time: 17:10 Bed 13 Private MD: GRISELDA Physician Jeremy Parham HPI: 12/14 23:39 This 49 yrs old Female presents to ER via Ambulatory with complaints of High snw Blood Pressure. 23:39 The patient has elevated blood pressure and discovered this pt states she took snw antihypertensive medications in the past, lost a lot of weight, wean off meds for over a year. Pt notes she has gained weight, is not eating right, and her blood pressure is steadily increasing. Occasional and intermittent tingling and "weird feeling" in left leg. Pt states the feeling resolves on blood pressure normalization. Onset: The symptoms/episode began/occurred acutely. Associated signs and symptoms: The patient has no apparent associated signs or symptoms. Severity of symptoms: At its worst the blood pressure was 189 mm Hg. It is unknown whether or not the patient has had similar symptoms in the past. 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 - Social history:: Smoking status: Patient reports use of chewing tobacco. Patient/guardian denies using tobacco, the patient reports quitting approximately 1 years ago. ROS: 23:37 Constitutional: Negative for fever, chills, and weight loss, Eyes: Negative for injury, snw pain, redness, and discharge, ENT: Negative for injury, pain, and discharge, Neck: Negative for injury, pain, and swelling, Cardiovascular: Negative for chest pain, palpitations, and edema, Respiratory: Negative for shortness of breath, cough, wheezing, and pleuritic chest pain, Abdomen/GI: Negative for abdominal pain, nausea, vomiting, diarrhea, and constipation, Back: Negative for injury and pain, : Negative for injury, bleeding, discharge, and swelling, MS/Extremity: Negative for injury and deformity, Skin: Negative for injury, rash, and discoloration, Neuro: Negative for headache, weakness, numbness, and seizure, occasional tingling to left groin and down left ext. No weakness. Exam: 23:36 Constitutional: This is a well developed, well nourished patient who is awake, alert, snw and in no acute distress. Head/Face: Normocephalic, atraumatic. Eyes: Pupils equal round and reactive to light, extra-ocular motions intact. Lids and lashes normal. Conjunctiva and sclera are non-icteric and not injected. Cornea within normal limits. Periorbital areas with no swelling, redness, or edema. ENT: Nares patent. No nasal discharge, no septal abnormalities noted. Tympanic membranes are normal and external auditory canals are clear. Oropharynx with no redness, swelling, or masses, exudates, or evidence of obstruction, uvula midline. Mucous membranes moist. Neck: Trachea midline, no thyromegaly or masses palpated, and no cervical lymphadenopathy. Supple, full range of motion without nuchal rigidity, or vertebral point tenderness. No Meningismus. Chest/axilla: Normal chest wall appearance and motion. Nontender with no deformity. No lesions are appreciated. Cardiovascular: Regular rate and rhythm with a normal S1 and S2. No gallops, murmurs, or rubs. Normal PMI, no JVD. No pulse deficits. Respiratory: Lungs have equal breath sounds bilaterally, clear to auscultation and percussion. No rales, rhonchi or wheezes noted. No increased work of breathing, no retractions or nasal flaring. Abdomen/GI: Soft, non-tender, with normal bowel sounds. No distension or tympany. No guarding or rebound. No evidence of tenderness throughout. Back: No spinal tenderness. No costovertebral tenderness. Full range of motion. Skin: Warm, dry with normal turgor. Normal color with no rashes, no lesions, and no evidence of cellulitis. MS/ Extremity: Pulses equal, no cyanosis. Neurovascular intact. Full, normal range of motion. Neuro: Awake and alert, GCS 15, oriented to person, place, time, and situation. Cranial nerves II-XII grossly intact. Motor strength 5/5 in all extremities. Sensory grossly intact. Cerebellar exam normal. Normal gait. Psych: Awake, alert, with orientation to person, place and time. Behavior, mood, and affect are within normal limits. Vital Signs: 17:27 BP 125 / 92; Pulse 92; Resp 18 S; Temp 97.1(TE); Pulse Ox 96% on R/A; Weight 101.15 kg ca1 (R); Height 5 ft. 7 in. (170.18 cm) (R); 20:04 BP 114 / 87; Pulse 89; Resp 17 S; Pulse Ox 97% on R/A; jd3 17:27 Body Mass Index 34.93 (101.15 kg, 170.18 cm) ca1 MDM: 19:05 Patient medically screened. snw 19:53 Data reviewed: vital signs, nurses notes. Data interpreted: Pulse oximetry: on room air snw is 96 %. Interpretation: acceptable. Counseling: I had a detailed discussion with the patient and/or guardian regarding: the historical points, exam findings, and any diagnostic results supporting the discharge/admit diagnosis, the need for outpatient follow up, to return to the emergency department if symptoms worsen or persist or if there are any questions or concerns that arise at home. Special discussion: Based on the history and exam findings, there is no indication for further emergent testing or inpatient evaluation. I discussed with the patient/guardian the need to see the neurologist for further evaluation of the symptoms. I discussed with the patient/guardian the need to see the primary care provider for further evaluation of the symptoms. 12/14 17:47 Order name: CT Head Brain wo Cont; Complete Time: 19:18 ca1 Administered Medications: 20:02 Drug: Metoprolol 12.5 mg Route: PO; jd3 20:03 Follow up: Response: Medication administered at discharge. jd3 20:02 Drug: Aspirin Chewable Tablet 81 mg Route: PO; jd3 20:04 Follow up: Response: Medication administered at discharge. jd3 Disposition: 12/15/19 19:44 Discharged to Home. Impression: Essential (primary) hypertension, Paresthesia of skin. - Condition is Stable. - Discharge Instructions: Hypertension, Paresthesia, How to Take Your Blood Pressure, [id number], DASH Eating Plan, Rehydration, Adult, Managing Your Hypertension. - Prescriptions for metoprolol succinate 25 mg Oral tablet extended release 24 hr - take 1 tablet by ORAL route once daily; 30 tablet. - Work release form, Medication Reconciliation Form, Thank You Letter, Antibiotic Education, Prescription Opioid Use form. - Follow up: Emergency Department; When: As needed; Reason: Worsening of condition. Follow up: Private Physician; When: 1 - 2 days; Reason: Recheck today's complaints, Continuance of care, Re-evaluation by your physician. - Notes: Please take one baby aspirin (81mg) daily Addendum: 12/17/2019 11:08 Co-signature as Attending Physician, Jeremy Parham MD I agree with the assessment and c ortega plan of care. Signatures: Dispatcher [employer] EDTX Jeremy Parham MD MD cha Waters, Shelly, UNIVERSITY ADMINISTRATIVE ASSISTANT-C UNIVERSITY ADMINISTRATIVE ASSISTANT-Csnw Guillermo Barba RN RN Lien Dinero RN RN ca1 Corrections: (The following items were deleted from the chart) 12/14 20:05 19:44 12/15/2019 19:44 Discharged to Home. Impression: Essential (primary) jd3 hypertension; Paresthesia of skin. Condition is Stable. Forms are Medication Reconciliation Form, Thank You Letter, Antibiotic Education, Prescription Opioid Use. Follow up: Emergency Department; When: As needed; Reason: Worsening of condition. Follow up: Private Physician; When: 1 - 2 days; Reason: Recheck today's complaints, Continuance of care, Re-evaluation by your physician. snw
--- NOTE | 2019-12-15 19:44 | ER ---
Nurse's Notes [facility] Name: Sienna Lee Age: 49 yrs Sex: Female : 1970 Arrival Date: 12/15/2019 Time: 17:10 Bed 13 Private MD: Diagnosis: Essential (primary) hypertension;Paresthesia of skin Presentation: 12/14 17:27 Chief complaint: Patient states: Highest BP 165/109, elevated BP for 4 days. Yesterday ca1 and today, L leg became numb and weak, dizziness. Coronavirus screen: Client denies travel out of the [place] in the last 14 days. At this time, the client does not indicate any symptoms associated with coronavirus-19. Ebola Screen: Patient negative for fever greater than or equal to 101.5 degrees Fahrenheit, and additional compatible Ebola Virus Disease symptoms Patient denies exposure to infectious person. Patient denies travel to an Ebola-affected area in the 21 days before illness onset. No symptoms or risks identified at this time. Initial Sepsis Screen: Does the patient meet any 2 criteria? No. Patient's initial sepsis screen is negative. Does the patient have a suspected source of infection? No. Patient's initial sepsis screen is negative. Risk Assessment: Do you want to hurt yourself or someone else? Patient reports no desire to harm self or others. Onset of symptoms was December 15, 2019. 17:27 Method Of Arrival: Ambulatory ca1 17:27 Acuity: FARZAD 3 ca1 UNIT MANAGER CONVENIENCE STORES: 17:36 LMP N/A - Recent ca1 Historical: - Allergies: 17:36 No Known Allergies; ca1 - Home Meds: 17:36 Spironolactone Oral [Active]; citalopram oral [Active]; ca1 - PMHx: 17:36 Hypertension; ca1 - PSHx: 17:36 Knee surgery; ca1 - Immunization history:: Adult Immunizations up to date. - Social history:: Smoking status: Patient reports use of chewing tobacco. Patient/guardian denies using tobacco, the patient reports quitting approximately 1 years ago. Screenin:33 VAN Screening: Arm Drift: Patient shows no arm weakness. Patient is VAN negative. jd3 19:42 Abuse screen: Denies threats or abuse. Nutritional screening: No deficits noted. jd3 Tuberculosis screening: No symptoms or risk factors identified. Fall Risk Ambulatory Aid- None/Bed Rest/Nurse Assist (0 pts). Gait- Normal/Bed Rest/Wheelchair (0 pts) Mental Status- Oriented to own ability (0 pts). Total Garrett Fall Scale indicates No Risk (0-24 pts). Assessment: 19:33 General: Appears in no apparent distress. comfortable, Behavior is calm, cooperative, jd3 appropriate for age. Pain: Denies pain. Neuro: Level of Consciousness is awake, alert, obeys commands, Oriented to person, place, time, situation, Reports numbness in left leg since yesterday Denies weakness. Cardiovascular: Denies chest pain, Capillary refill < 3 seconds Patient's skin is warm and dry. Respiratory: Airway is patent Respiratory effort is even, unlabored, Respiratory pattern is regular, symmetrical. GI: No signs and/or symptoms were reported involving the gastrointestinal system. : No signs and/or symptoms were reported regarding the genitourinary system. EENT: No signs and/or symptoms were reported regarding the EENT system. Derm: Skin is intact, Skin is dry, Skin is normal, Skin temperature is warm. Musculoskeletal: Circulation, motion, and sensation intact. Range of motion: intact in all extremities. 20:04 Reassessment: Patient appears in no apparent distress at this time. Patient and/or jd3 family updated on plan of care and expected duration. Pain level reassessed. Patient is alert, oriented x 3, equal unlabored respirations, skin warm/dry/pink. Vital Signs: 17:27 BP 125 / 92; Pulse 92; Resp 18 S; Temp 97.1(TE); Pulse Ox 96% on R/A; Weight 101.15 kg ca1 (R); Height 5 ft. 7 in. (170.18 cm) (R); 20:04 BP 114 / 87; Pulse 89; Resp 17 S; Pulse Ox 97% on R/A; jd3 17:27 Body Mass Index 34.93 (101.15 kg, 170.18 cm) ca1 ED Course: 17:10 Patient arrived in ED. ag5 17:34 Triage completed. ca1 17:36 Arm band placed on right wrist. ca1 18:42 Antion[facility] Alman[facility]C [facility] snw 18:42 Jeremy Parham MD is Attending Physician. snw 19:00 CT Head Brain wo Cont In Process Unspecified. EDMS 19:05 Antionette Almanza FNP-C is PHCP. snw 19:05 Jeremy Parham MD is Attending Physician. snw 19:23 Guillermo Barba, RN is Primary Nurse. jd3 19:42 Patient has correct armband on for positive identification. Placed in gown. Bed in low jd3 position. Call light in reach. Side rails up X2. Adult w/ patient. equipment monitor phototypesetting on. Pulse ox on. NIBP on. 20:05 No provider procedures requiring assistance completed. Patient did not have IV access jd3 during this emergency room visit. Administered Medications: 20:02 Drug: Metoprolol 12.5 mg Route: PO; jd3 20:03 Follow up: Response: Medication administered at discharge. jd3 20:02 Drug: Aspirin Chewable Tablet 81 mg Route: PO; jd3 20:04 Follow up: Response: Medication administered at discharge. jd3 Outcome: 19:44 Discharge ordered by . snw 20:05 Discharged to home ambulatory, with family. jd3 20:05 Condition: stable 20:05 Discharge instructions given to patient, Instructed on discharge instructions, follow up and referral plans. medication usage, Demonstrated understanding of instructions, follow-up care, medications, Prescriptions given X 1. 20:05 Patient left the ED. jd3 Signatures: Dispatcher [employer] EDNV Antionette Almanza FNP-C STRUCTURAL DESIGNER-Csnw Guillermo Barba RN RN jd3 Acob, Cheryl, RN RN ca1 Karlene Herrera ag5 Corrections: (The following items were deleted from the chart) :42 19:42 VAN Screening: Arm Drift: Patient shows no arm weakness. Patient is VAN negative. jd3 jd3
[2019-12-15] MEDS ORDERED: METOPROLOL TAR 25 MG TAB ONE (19:58)
[2019-12-15] MEDS ORDERED: ASPIRIN 81 MG CHEWABLE TABLET ONE (19:58)
[2019-12-15 20:29] VITALS: TEMP 97.1
[2019-12-15 20:30] VITALS: BP 114/87; O2SAT 97
== END 2019-12-15 20:05 | disposition home or self-care (01) ==
LOC: ER 17:09
DX: I10 Essential (primary) hypertension (principal); F17.220 Nicotine dependence, chewing tobacco, uncomplicated
CPT/HCPCS: 70450; 99284